=== PATIENT | female | born 1940 | race Two or more races ===

== ENCOUNTER 2022-05-26 17:58 | Emergency (ER) | payer OTHER ==
[~2022-05-26] VITALS: Ht 154.9 cm; Wt 80.7 kg
[~2022-05-26 17:58] MED LIST: FLONASE16 GM NS; ZYRTEC10 MG PO
[2022-05-26] MEDS ORDERED: ROSUVASTATIN CA20 MG PO (18:19)
[2022-05-26] MEDS ORDERED: METOPROLOL SUC100 MG PO (18:19)
[2022-05-26] MEDS ORDERED: DYRENIUM50 MG PO (18:20)
== END 2022-05-27 00:12 | disposition home or self-care (01) ==
LOC: ER 17:58
DX: S00.83XA Contusion of other part of head, initial encounter (principal); W18.30XA Fall on same level, unspecified, initial encounter; Y93.9 Activity, unspecified; Y92.89 Other specified places as the place of occurrence of the external cause; Y99.9 Unspecified external cause status; I10 Essential (primary) hypertension

== ENCOUNTER → 2024-04-19 | Emergency (ER) | payer OTHER ==
[~2024-04-19] VITALS: Ht 154.9 cm; Wt 69.9 kg
[~2024-04-19] MED LIST changes: +ALDACTONE25 MG PO; +ALPRAZOLAM ODT0.5 MG PO; +AMLODIPINE-OLM1 EAC2; +CRESTOR40 MG; +DYRENIUM50 MG PO; +LOSARTAN POTAS100 MG PO; +METOPROLOL SUC100 MG PO; +PROPRANOLOL HCL40 MG PO; +ROSUVASTATIN CA20 MG PO; +SERTRALINE20 MG/1 ML; +TETANUS & DIPHTHERIA TOX,ADULT 0.5 ML VIAL IM ONE; +TETANUS DIPHTHERIA TOX. ADSOR 5 ML VIAL IM ONE
== END | disposition home or self-care (01) ==
LOC: ER 20:01
DX: S01.01XA Laceration without foreign body of scalp, initial encounter (principal); W18.39XA Other fall on same level, initial encounter; Y93.89 Activity, other specified; Y92.89 Other specified places as the place of occurrence of the external cause; Y99.9 Unspecified external cause status; I10 Essential (primary) hypertension

== ENCOUNTER 2024-04-29 10:25 | Emergency (ER) | payer OTHER ==
[~2024-04-29] VITALS: Ht 157.5 cm; Wt 68.9 kg
[~2024-04-29 10:25] MED LIST changes: -TETANUS & DIPHTHERIA TOX,ADULT 0.5 ML VIAL IM ONE; -TETANUS DIPHTHERIA TOX. ADSOR 5 ML VIAL IM ONE
== END 2024-04-29 11:42 | disposition home or self-care (01) ==
LOC: ER 10:25
DX: Z48.02 Encounter for removal of sutures (principal)

== ENCOUNTER 2024-09-13 09:38 | Emergency (ER) | payer OTHER ==
[~2024-09-13] VITALS: Ht 170.2 cm; Wt 70.3 kg
[2024-09-13] MEDS ORDERED: PANTOPRAZOLE SODIUM 40 MG/VIAL VIAL IV ONE (10:15)
[2024-09-13 10:36] LABS: BASO % 0.6 % (0.1-1.2); EOS # 0.09 (0.04-0.54); EOS % 1.1 % (0.7-7.0); LYMPH # 1.26 (1.18-3.74); LYMPH % 15.1 % (19.3-53.1); MEAN PLATELET VOLUME 9.60 fl (9.4-12.4); MONO # 0.51 (0.24-0.82); MONO % 6.1 % (4.7-12.5); NEUT # 6.41 (1.56-6.13); NEUT % 76.7 % (34.0-71.1); RED CELL DISTRIBUTION WIDTH 14.6 % (11.6-14.4)
[2024-09-13 10:39] LABS: ABG PH 7.436 (7.35-7.45); ABG PO2 75.4 mmHg (80-100); BICARBONATE 21.7 mmol/l (23-25)
[2024-09-13 10:57] LABS: INR 1.02
[2024-09-13 11:04] LABS: ALT/SGPT 19.0 U/L (12-78); AST/SGOT 16.0 U/L (15-37); BILIRUBIN TOTAL 0.5 mg/dL (0.3-1.2); BUN CREA RATIO 32.0 (7.0-25.0); CREATININE SERUM 0.65 mg/dL (0.55-1.02); GFR 87.48; GLOBULINA 3.4 G/DL (2.4-3.5); GLUCOSE FASTING 111.0 mg/dL (65-100); OSMOLALITY SERUM 291.0 MOSM/KG (275-295)
[2024-09-13 11:31] LABS: URINE APPEARANCE Clear; URINE BILIRRUBIN Negative (NEGATIVE); URINE BLOOD Negative; URINE COLOR Yellow; URINE GLUCOSE Negative (NEGATIVE); URINE KETONE Negative (NEGATIVE); URINE LEUKOCYTE Trace; URINE NITRATE Negative; URINE PROTEIN Negative (NEGATIVE); URINE UROBILINOGEN 0.2 E.U./dl
[2024-09-13 11:32] LABS: URINE BACTERIA 51.5 uL (0.0-1933); URINE EPITHELIAL CELLS 7.8 uL (0.0-38.8); URINE RBC 4.3 uL (0.0-20.8); URINE WBC 8.2 uL (0.0-23.2)
[2024-09-13 11:33] LABS: URINE CAST 0.29 uL (0.0-1.40)
[2024-09-13] MEDS ORDERED: CEFTRIAXONE SODIUM 2,000 MG VIAL IV STA (15:16)
[2024-09-13 15:25] LABS: o2 21 %
[2024-09-13] MEDS ORDERED: ACETAMINOPHEN 500 MG GEL..CAP PO STA (16:06)
[2024-09-14] MEDS ORDERED: SODIUM CL 0.9% 25 ML IV.SOLN. IV SCH (09:00)
== END 2024-09-13 17:35 | disposition home or self-care (01) ==
LOC: ER 09:38
PROVIDERS: General Practice
DX: S01.81XA Laceration without foreign body of other part of head, initial encounter (principal); W19.XXXA Unspecified fall, initial encounter; Y93.89 Activity, other specified; Y92.89 Other specified places as the place of occurrence of the external cause; Y99.8 Other external cause status
CPT/HCPCS: 13132; 13133; 36415; 70450; 71046; 82803; 93005; 99284; J0696; J3490 ×2